=== PATIENT | female | born 1955 | race Caucasian/White ===

== ENCOUNTER → 2020-03-19 13:41 | Outpatient (BNVA) | payer MEDICARE, SELFPAY | PROVIDERS: PCP Family Medicine; Referring Provider Family Medicine; Visit Provider Internal Medicine Endocrinology, Diabetes & Metabolism | DX: E11.65 Type 2 diabetes mellitus with hyperglycemia (principal); E11.40 Type 2 diabetes mellitus with diabetic neuropathy, unspecified; Z79.4 Long term (current) use of insulin; E27.8 Other specified disorders of adrenal gland; I10 Essential (primary) hypertension; E66.9 Obesity, unspecified; Z68.37 Body mass index [BMI] 37.0-37.9, adult; E78.5 Hyperlipidemia, unspecified; Z79.899 Other long term (current) drug therapy | CPT/HCPCS: 82947; 99214 ==

== ENCOUNTER 2020-08-27 09:42 | Outpatient (REF) | payer MEDICARE, SELFPAY ==
[2020-08-27 10:43] LABS: Hematocrit 46.4 % (37-47); Hemoglobin 14.7 g/dl (12.0-16.0); Mean Corpuscular HGB Conc 31.7 g/dl (31.0-35.0); Mean Corpuscular Hemoglobin 28.4 pg (27.0-33.0); Mean Corpuscular Volume 89.6 fL (80-98); Mean Platelet Volume 10.1 fL (9.4-12.3); Platelet Count 256 X10*3/uL (160-400); Red Blood Count 5.18 X10*6/uL (4.20-5.50); White Blood Count 7.5 X10*3/uL (4.8-10.8)
[2020-08-27 11:21] LABS: Alanine Aminotransferase 25 U/L (0-31); Albumin Level 4.1 g/dL (3.5-5.0); Alkaline Phosphatase 108 U/L (39-117); Anion Gap 14 (12-20); Aspartate Amino Transferase 27 U/L (5-31); Bilirubin Total 0.6 mg/dL (0.0-1.0); Blood Urea Nitrogen 20 mg/dL (9-16); Calcium 9.2 mg/dL (8.4-10.2); Carbon Dioxide 24 mmol/L (22-29); Chloride 103 mmol/L (96-108); Cholesterol 271 mg/dL; Estimated Glomerular Filt Rate > 60; Glucose Fasting 222 mg/dL (60-99); HDL Cholesterol 49 mg/dL; LDL Cholesterol Calculated 177 mg/dl; Potassium 4.7 mmol/L (3.3-5.1); Sodium 136 mmol/L (135-145); Total Protein 6.9 g/dL (6.5-8.0); Triglycerides 227 mg/dL
[2020-08-27 11:21] LABS: Creatinine Urine 169.66 mg/dL; Microalbum/Creatinine Ratio Ur 12.3 ug/mg cr
[2020-08-27 11:48] LABS: Vitamin B12 283 pg/mL (200-900)
[2020-08-28 02:46] LABS: LDL Cholesterol Direct 202 mg/dL (<100)
== END 2020-08-27 09:43 | disposition home or self-care (01) ==
LOC: HO.LAB 09:42
PROVIDERS: PCP Family Medicine; Visit Provider Internal Medicine Endocrinology, Diabetes & Metabolism
DX: E11.65 Type 2 diabetes mellitus with hyperglycemia (principal); E11.40 Type 2 diabetes mellitus with diabetic neuropathy, unspecified; I10 Essential (primary) hypertension; E27.8 Other specified disorders of adrenal gland; E78.5 Hyperlipidemia, unspecified; E66.9 Obesity, unspecified; Z79.899 Other long term (current) drug therapy; Z87.891 Personal history of nicotine dependence; Z88.0 Allergy status to penicillin; Z79.82 Long term (current) use of aspirin; Z79.4 Long term (current) use of insulin
CPT/HCPCS: 36415; 80053; 80061; 82043; 82607; 82947; 83721; 85027; 99212

== ENCOUNTER → 2021-03-30 09:56 | Outpatient (BNVA) | payer MEDICARE, SELFPAY | PROVIDERS: PCP Family Medicine; Visit Provider Nurse Practitioner Gerontology | DX: E11.65 Type 2 diabetes mellitus with hyperglycemia (principal); E11.40 Type 2 diabetes mellitus with diabetic neuropathy, unspecified; E78.5 Hyperlipidemia, unspecified; E66.01 Morbid (severe) obesity due to excess calories; I10 Essential (primary) hypertension; Z68.37 Body mass index [BMI] 37.0-37.9, adult | CPT/HCPCS: 82947; 83036; 99212 ==

== ENCOUNTER 2021-09-01 10:53 | Outpatient (REF) | payer MEDICARE, SELFPAY ==
[2021-09-01 12:44] LABS: Creatinine Urine 128.51 mg/dL; Microalbum/Creatinine Ratio Ur 349.3 ug/mg cr
[2021-09-01 12:45] LABS: Alanine Aminotransferase 21 U/L (0-31); Albumin Level 4.2 g/dL (3.5-5.0); Alkaline Phosphatase 97 U/L (39-117); Anion Gap 15 (12-20); Aspartate Amino Transferase 21 U/L (5-31); Bilirubin Total 0.7 mg/dL (0.0-1.0); Blood Urea Nitrogen 15 mg/dL (9-16); Calcium 10.2 mg/dL (8.4-10.2); Carbon Dioxide 21 mmol/L (22-29); Chloride 102 mmol/L (96-108); Cholesterol 156 mg/dL; Estimated Glomerular Filt Rate > 60; Glucose Fasting 260 mg/dL (60-99); HDL Cholesterol 63 mg/dL; LDL Cholesterol Calculated 64 mg/dl; Potassium 4.4 mmol/L (3.3-5.1); Sodium 134 mmol/L (135-145); Total Protein 7.5 g/dL (6.5-8.0); Triglycerides 147 mg/dL
== END 2021-09-01 10:54 | disposition home or self-care (01) ==
LOC: HO.LAB 10:53
PROVIDERS: PCP Family Medicine; Visit Provider Nurse Practitioner Gerontology
DX: E11.65 Type 2 diabetes mellitus with hyperglycemia (principal); E55.9 Vitamin D deficiency, unspecified
CPT/HCPCS: 36415; 80053; 80061; 82043; 82306

== ENCOUNTER → 2021-09-06 09:53 | Outpatient (BNVA) | payer MEDICARE, SELFPAY | PROVIDERS: PCP Family Medicine; Visit Provider Internal Medicine | DX: E27.8 Other specified disorders of adrenal gland (principal) | CPT/HCPCS: 99212 ==

== ENCOUNTER 2021-09-07 07:35 | Outpatient (REF) | payer MEDICARE, SELFPAY ==
[2021-09-07 09:18] LABS: Alanine Aminotransferase 29 U/L (0-31); Albumin Level 4.2 g/dL (3.5-5.0); Alkaline Phosphatase 97 U/L (39-117); Anion Gap 20 (12-20); Aspartate Amino Transferase 27 U/L (5-31); Bilirubin Total 0.7 mg/dL (0.0-1.0); Blood Urea Nitrogen 22 mg/dL (9-16); Calcium 10.2 mg/dL (8.4-10.2); Carbon Dioxide 20 mmol/L (22-29); Chloride 102 mmol/L (96-108); Estimated Glomerular Filt Rate 58; Glucose Random 224 mg/dL (60-115); Potassium 5.1 mmol/L (3.3-5.1); Sodium 137 mmol/L (135-145); Total Protein 7.7 g/dL (6.5-8.0)
[2021-09-07 10:31] LABS: Cortisol Random 6.4 ug/dL
[2021-09-09 02:22] LABS: DHEA Sulfate 7 mcg/dL (9-118)
[2021-09-09 15:22] LABS: Adrenocorticotropic Hormone 16 pg/mL (6-50)
[2021-09-12 12:42] LABS: Metanephrine, Free 48 pg/mL (<=57); Normetanephrines, Free 109 pg/mL (<=148); Total Metanephrine, Free 157 pg/mL (<=205)
[2021-09-16 16:22] LABS: Renin 82.85 ng/mL/h (0.25-5.82)
[2021-09-17 14:16] LABS: Catecholamine Frac, Total 650 pg/mL
== END 2021-09-07 07:36 | disposition home or self-care (01) ==
LOC: HO.LAB 07:35
PROVIDERS: PCP Family Medicine; Visit Provider Internal Medicine
DX: E27.8 Other specified disorders of adrenal gland (principal)
CPT/HCPCS: 36415; 80053; 82024; 82088; 82384; 82533; 82627; 83835; 84244

== ENCOUNTER → 2021-09-08 12:05 | Outpatient (BNVA) | payer MEDICARE, SELFPAY | PROVIDERS: PCP Family Medicine; Visit Provider Internal Medicine | DX: Z13.89 Encounter for screening for other disorder (principal) ==

== ENCOUNTER → 2021-09-10 09:28 | Outpatient (BNVA) | payer MEDICARE, SELFPAY | PROVIDERS: PCP Family Medicine; Visit Provider Nurse Practitioner Gerontology | DX: E11.65 Type 2 diabetes mellitus with hyperglycemia (principal); E11.40 Type 2 diabetes mellitus with diabetic neuropathy, unspecified; E66.01 Morbid (severe) obesity due to excess calories; Z68.37 Body mass index [BMI] 37.0-37.9, adult; E78.5 Hyperlipidemia, unspecified; I10 Essential (primary) hypertension; Z79.4 Long term (current) use of insulin; Z79.84 Long term (current) use of oral hypoglycemic drugs; Z87.891 Personal history of nicotine dependence | CPT/HCPCS: 82947; 83036; 99212 ==

== ENCOUNTER 2021-09-13 09:34 | Outpatient (REF) | payer MEDICARE, SELFPAY ==
[2021-09-13 10:46] LABS: Total Volume 24 Hour Urine 1225 mL
[2021-09-13 11:19] LABS: Creatinine, 24Hr Urine 1.1 G/Day (1.0-2.0); Creatinine, mg/dL 92.82
[2021-09-19 03:22] LABS: Metanephrine, Free 24U 83 mcg/24 h (90-315); Normetanephrine, Free 24U 236 mcg/24 h (122-676); Total Metanephrine, Free 24U 319 mcg/24 h (224-832); Total Volume 24U 1225 mL
[2021-09-20 10:51] LABS: CATF, 24 Ur Volume 1225 mL; CATF-24Ur Creatinine 1.14 g/24 h (0.50-2.15); Catecholamines,Tot. (E+NE) 24U 38 mcg/24 h (26-121); Dopamine, 24 Ur 177 mcg/24 h (52-480); Norepinephrine, 24 Ur 38 mcg/24 h (15-100)
[2021-09-21 12:02] LABS: Cortisol Free, 24 Hr Urine 4.2 mcg/24 h (4.0-50.0); Creatinine, 24 Hr Urine 1.15 g/24 h (0.50-2.15); Total Volume, 24 Hr Urine 1225 mL
[2021-09-26 01:22] LABS: Aldosterone, 24Hr Urine 2.7 mcg/24 h; Creatinine 24Hr Urine 1.13 g/24 h (0.50-2.15); Total Volume 1225 mL
== END 2021-09-13 09:35 | disposition home or self-care (01) ==
LOC: HO.LNP 09:34
PROVIDERS: Visit Provider Internal Medicine
DX: E27.8 Other specified disorders of adrenal gland (principal)
CPT/HCPCS: 82088; 82384; 82530; 82570; 83835

== ENCOUNTER 2021-09-14 08:14 | Outpatient (REF) | payer MEDICARE, SELFPAY ==
[2021-09-15 19:07] LABS: Adrenocorticotropic Hormone 11 pg/mL (6-50)
[2021-09-16 07:21] LABS: Cortisol 30 Minute 25.2 mcg/dL; Cortisol 60 Minute 28.7 mcg/dL; Cortisol 60 Minute Time 3 1006; Cortisol Baseline 9.8 mcg/dL
== END 2021-09-14 08:15 | disposition home or self-care (01) ==
LOC: HO.MDS 08:14
PROVIDERS: Visit Provider Internal Medicine
DX: E27.40 Unspecified adrenocortical insufficiency (principal)
CPT/HCPCS: 36415; 82024; 82533; 96374; J0834

== ENCOUNTER 2021-09-17 07:50 | Outpatient (REF) | payer MEDICARE, SELFPAY ==
[2021-09-17 09:37] LABS: Cortisol Random < 1.0 ug/dL
[2021-09-20 21:47] LABS: Adrenocorticotropic Hormone <5 pg/mL (6-50)
[2021-09-22 16:11] LABS: Dexamethasone 609 ng/dL
== END 2021-09-17 07:51 | disposition home or self-care (01) ==
LOC: HO.LAB 07:50
PROVIDERS: PCP Family Medicine; Visit Provider Internal Medicine
DX: E27.8 Other specified disorders of adrenal gland (principal)
CPT/HCPCS: 36415; 80299; 82024; 82533

== ENCOUNTER 2021-10-20 08:03 | Outpatient (REF) | payer MEDICARE, SELFPAY ==
--- NOTE | ~2021-10-20 | CT_ITS ---
EXAMINATION: CT ABDOMEN WITHOUT CONTRAST CLINICAL INFORMATION: Adrenal gland disorder. COMPARISON: CT abdomen without contrast 01/12/2018. TECHNIQUE: Contiguous axial thin section helical images of the abdomen were performed without contrast. The data set was reformatted in the coronal and sagittal planes and reviewed on an independent workstation. This CT examination was performed using dose optimization techniques as appropriate, variously including the following: *Automated exposure control *Adjustment of mA and/or kV according to patient size (this includes techniques or standardized protocols for targeted exams where dose is matched to indication/reason for exam; i.e. extremities or head) *Use of iterative reconstruction technique DLP: 590 mGy-cm FINDINGS: LUNG BASES: Lung bases are clear. LIVER, GALLBLADDER, BILIARY TREE: The liver is homogeneous in density, normal size and contour. No focal lesion or intrahepatic ductal dilatation seen. There are no radiopaque gallstones or wall thickening. PANCREAS: The pancreas is homogeneous in density and normal size. No focal lesion seen. SPLEEN: The spleen is unremarkable. ADRENAL GLANDS AND KIDNEYS: There is mild fullness of the left adrenal gland. It measures 6 Hounsfield units and approximately 1.6 cm in craniocaudad length. The right adrenal gland is normal. Both kidneys are normal size, shape and position. There are no radiopaque renal calculi or hydronephrosis. BOWEL LOOPS: Scattered stool and gas is seen in the colon without any significant distention. The small bowel loops are normal caliber. LYMPH NODES: Normal. VASCULAR: Unremarkable. BONES: No lytic or sclerotic process seen. CT/CT abdomen wo con IMPRESSION: Stable left adrenal adenoma measuring 7 Hounsfield units and same size as previous study 01/12/2018. Fleischner guidelines were followed.
[2021-10-20 08:32] LABS: Blood Urea Nitrogen 13 mg/dL (9-16); Estimated Glomerular Filt Rate > 60
== END 2021-10-20 08:04 | disposition home or self-care (01) ==
LOC: HO.CT 08:03
PROVIDERS: Absent Provider Internal Medicine Endocrinology, Diabetes & Metabolism; PCP Family Medicine; Visit Provider Internal Medicine
DX: E27.8 Other specified disorders of adrenal gland (principal)
CPT/HCPCS: 36415; 74150; 82565; 84520

== ENCOUNTER → 2021-11-30 09:49 | Outpatient (BNVA) | payer MEDICARE, SELFPAY | PROVIDERS: PCP Family Medicine; Visit Provider Nurse Practitioner Gerontology | DX: E11.65 Type 2 diabetes mellitus with hyperglycemia (principal); E11.40 Type 2 diabetes mellitus with diabetic neuropathy, unspecified; E78.5 Hyperlipidemia, unspecified; I10 Essential (primary) hypertension; E66.01 Morbid (severe) obesity due to excess calories; Z68.37 Body mass index [BMI] 37.0-37.9, adult; Z79.4 Long term (current) use of insulin | CPT/HCPCS: 82947; 99212; Q3014 ==

== ENCOUNTER → 2021-12-30 13:34 | Outpatient (BNVA) | payer MEDICARE, SELFPAY | PROVIDERS: PCP Family Medicine; Visit Provider Internal Medicine | DX: E27.8 Other specified disorders of adrenal gland (principal); E11.69 Type 2 diabetes mellitus with other specified complication; Z79.4 Long term (current) use of insulin | CPT/HCPCS: 99212 ==

== ENCOUNTER 2022-11-25 07:13 | Outpatient (REF) | payer MEDICARE, SELFPAY ==
--- NOTE | ~2022-11-25 | MR_ITS ---
EXAMINATION: MR ABDOMEN WITHOUT CONTRAST CLINICAL INFORMATION: Other specified disorder of adrenal gland COMPARISON: Previous CT scans from 2018 and 2021 of the abdomen. TECHNIQUE: MR abdomen is performed without gadolinium contrast. Patient became claustrophobic and refused to complete the exam. IV contrast was not administered. FINDINGS: LUNG BASES: The visualized lung bases are unremarkable. LIVER, GALLBLADDER, AND BILIARY TREE: The liver is normal in size, smooth in contour, and normal in signal. No focal hepatic lesion or biliary ductal dilatation is present. The gallbladder is unremarkable with no evidence of gallbladder wall thickening, or obvious pericholecystic inflammatory changes. PANCREAS: Unremarkable. SPLEEN: Unremarkable. ADRENAL GLANDS: There is a 1.4 x 1.3 cm left adrenal lesion. This loses signal on out of phase sequences suggestive of a benign lipid rich adenoma. This does not appear appreciably changed in size from previous CT scans. The right adrenal gland is normal. KIDNEYS AND URETERS: The kidneys are normal in size and shape. No hydronephrosis. No perinephric stranding. GASTROINTESTINAL TRACT: No bowel obstruction. No ascites or fluid collection. ABDOMINAL WALL: No significant hernia is appreciated. LYMPH NODES: No lymphadenopathy. VASCULAR: Unremarkable. OSSEOUS STRUCTURES: Marrow signal normal. MR/MR abdomen wo con IMPRESSION: Stable 1.3 x 1.4 cm left adrenal lesion that loses signal on out of phase sequences suggestive of a benign lipid rich adenoma.
== END 2022-11-25 07:14 | disposition home or self-care (01) ==
LOC: HO.MRI 07:13
PROVIDERS: PCP Family Medicine; Visit Provider Internal Medicine
DX: E27.8 Other specified disorders of adrenal gland (principal)
CPT/HCPCS: 74181

== ENCOUNTER 2022-12-29 08:33 | Outpatient (AMB) | payer MEDICARE, SELFPAY ==
--- NOTE | 2022-12-29 08:34 | MHC.OFFVIS ---
Intake Intake Visit Reasons: F/U Adrenal Adenoma Allergies penicillin V Allergy (Unknown, Verified 12/29/22 10:26) Unknown tramadol Allergy (Unknown, Uncoded 12/29/22 10:26) Unknown Medication List - Last Reconciled 12/29/22 by Jeannette Brito, aspirin (Adult Aspirin Regimen) 81 mg PO DAILY blood sugar diagnostic (FreeStyle Lite Strips) As directed three times a day blood-glucose meter (FreeStyle Lite Meter kit) As directed 3x/day cholecalciferol (vitamin D3) 125 mcg PO DAILY esomeprazole magnesium (Nexium) 20 mg PO DAILY ezetimibe 10 mg PO DAILY glipizide ER 5 mg PO DAILY 90 days insulin glargine U-300 conc (Toujeo SoloStar U-300 Insulin) 34 units (0.1133 mL) subcut DAILY 30 days lancets (FreeStyle Lancets) Three times a day lisinopril 20 mg PO DAILY 90 days metformin ER 1,000 mg (2 x 500 mg) PO BID 90 days metoprolol tartrate 25 mg PO BID 90 days pen needle, diabetic Once a day rosuvastatin 40 mg PO DAILY 90 days HPI HPI Comments History of Present Illness Details 66 YO F with PMHx T2DM and a L adrenal nodule who is seen in F/U for her L adrenal nodule. She was previously followed by Dr. Khalil. Her T2DM is managed by her PCP. She had a CT of the chest in 2015 during a hospital admission which noted a L adrenal incidentaloma. She underwent a biochemical evaluation in 2016 which revealed no evidence of hyperaldosteronism, and no evidence of jesus's or pheochromocytoma. She had a repeat CT scan 01/12/2018 with a 2.5 cm L adrenal adenoma, with precontrast HU of 0. No washout chracteristics were given. She then had a repeat CT of the abdomen without contrast due to the shotrage 10/20/2021 with a 1.6 cm L adrenal nodule measurin 6 HU. She underwent a full biochemical evaluation which revealed no evidence of hyperaldosteronism or pheochromocytoma. Her am cortisol was slightly low so she underwent a cosyntropin stim test which was WNL. She also underwent a dexamethasone supression test which was WNL ruling out jesus's disease. She had a repeat MRI of the abdomen 11/25/2022 which revealed a 1.4 cm left adrenal nodule, consistent with a lipid rich adenoma. Denies history of spells with headache, flushing, diaphoresis, abdominal pain or diarrhea. Does report weight gain. Denies violaceous striae. History of HTN, controlled on 2 agents (Lisinopril 20 mg PO daily and Metoprolol 25 mg PO BID). No history of anticoagulant use. Denies any weight loss or orthostatic symptoms. No history of malignancy or TB. Imagin08/27/2020 FINDINGS: LUNG BASES: Mild dependent atelectasis. LIVER, GALLBLADDER, AND BILIARY TREE: There is mild diffuse fatty infiltration of the liver but no focal hepatic lesion nor biliary ductal dilatation. The gallbladder is contracted but otherwise unremarkable. PANCREAS: Unremarkable SPLEEN: Unremarkable ADRENAL GLANDS AND KIDNEYS: There is stable low-attenuation fullness to the left adrenal gland with a left ovarian nodule that measures 2.5 x 1.7 cm in size. On the noncontrast images this measures 0 Hounsfield units consistent with an adrenal adenoma. There is minimal postcontrast enhancement measuring 11 Hounsfield units on the initial postcontrast examination and also 11 Hounsfield units on the 15 minute delayed image. Contralateral right adrenal gland is unremarkable. No focal abnormalities seen within the kidneys. BOWEL LOOPS: Visualized small and large bowel are unremarkable. LYMPH NODES: Normal. VASCULAR: Vascular calcification within the visualized aorta BONES: Unremarkable IMPRESSION: 2.5 cm left adrenal adenoma measures 0 Hounsfield units on the noncontrast study consistent with a lipid rich adrenal adenoma. When measured in similar orientation on the prior 07/08/2015 study this remains stable in size. No new or suspicious features seen. Labs: Laboratory Tests 09/01/21 09/07/21 09/07/21 11:11 08:30 08:30 Sodium 137 Potassium 5.1 Creatinine Estimated GFR Renin 25-OH Vitamin D To lorie 44.0 DHEA Sulfate 7 L Random Cortisol ACTH Plas Tot Catechola mine Dopamine Epinephrine Norepinephrine Plasma Free Metane ph Plasma Free Normet a Plas Total Metanep h Urine Total Volume Ur Creatinine 24 H our Ur Free Cortisol 2 4 Hr Ur Epinephrine 24 Hr U Norepinephrine 2 4 Hr U Free Metanephrin e U Normetanephrine 24h U Tot Metanephrine 24h Ur Dopamine 24 Hr U Tot Catecholamin e 24h Ur Aldosterone 24 Hr Dexamethasone 09/07/21 09/07/21 09/07/21 08:30 08:30 08:30 Sodium Potassium Creatinine Estimated GFR Renin 82.85 H 25-OH Vitamin D To lorie DHEA Sulfate Random Cortisol ACTH Plas Tot Cate[place]ola mine 650 Dopamine <20 Epinephrine 47 Norepinephrine 603 Plasma Free Metane ph 48 Plasma Free Normet a 109 Plas Total Metanep h 157 Urine Total Volume Ur Creatinine 24 H our Ur Free Cortisol 2 4 Hr Ur Epinephrine 24 Hr U Norepinephrine 2 4 Hr U Free Metanephrin e U Normetanephrine 24h U Tot Metanephrine 24h Ur Dopamine 24 Hr U Tot Catecholamin e 24h Ur Aldosterone 24 Hr Dexamethasone 09/13/21 09/13/21 09/13/21 06:55 06:55 06:55 Sodium Potassium Creatinine Estimated GFR Renin 25-OH Vitamin D To lorie DHEA Sulfate Random Cortisol ACTH Plas Tot [place] mine Dopamine Epinephrine Norepinephrine Plasma Free Metane ph Plasma Free Normet a Plas Total Metanep h Urine Total Volume 1225 Ur Creatinine 24 H our 1.1 Ur Free Cortisol 2 4 Hr 4.2 Ur Epinephrine 24 Hr see note U Norepinephrine 2 4 Hr 38 U Free Metanephrin e 83 L U Normetanephrine 24h 236 U Tot Metanephrine 24h 319 Ur Dopamine 24 Hr 177 U Tot Catecholamin e 24h 38 Ur Aldosterone 24 Hr 2.7 Dexamethasone 09/17/21 09/17/21 09/17/21 08:08 08:08 08:08 Sodium Potassium Creatinine Estimated GFR Renin 25-OH Vitamin D To lorie DHEA Sulfate Random Cortisol < 1.0 ACTH <5 L Plas Tot [place]ola mine Dopamine Epinephrine Norepinephrine Plasma Free Metane ph Plasma Free Normet a Plas Total Metanep h Urine Total Volume Ur Creatinine 24 H our Ur Free Cortisol 2 4 Hr Ur Epinephrine 24 Hr U Norepinephrine 2 4 Hr U Free Metanephrin e U Normetanephrine 24h U Tot Metanephrine 24h Ur Dopamine 24 Hr U Tot Catecholamin e 24h Ur Aldosterone 24 Hr Dexamethasone 609 10/20/21 08:10 Sodium Potassium Creatinine 0.76 Estimated GFR > 60 Renin 25-OH Vitamin D To lorie DHEA Sulfate Random Cortisol ACTH Plas Tot [place] mine Dopamine Epinephrine Norepinephrine Plasma Free Metane ph Plasma Free Normet a Plas Total Metanep h Urine Total Volume Ur Creatinine 24 H our Ur Free Cortisol 2 4 Hr Ur Epinephrine 24 Hr U Norepinephrine 2 4 Hr U Free Metanephrin e U Normetanephrine 24h U Tot Metanephrine 24h Ur Dopamine 24 Hr U Tot Catecholamin e 24h Ur Aldosterone 24 Hr Dexamethasone PFSH Medical History Adrenal nodule Coronary artery disease Diabetes type 2, uncontrolled Diabetic neuropathy associated with type 2 diabetes mellitus Dyslipidemia Hypertension [facility] (current) use of insulin Obesity (BMI 30-39.9) Obesity due to excess calories T2DM (type 2 diabetes mellitus) Surgical History H/O bilateral hip replacements History of heart surgery Hx of abdominal hysterectomy Family History Father Hypertension Alcoholism Obesity Mother Hypertension Obesity Diabetes CVD (cardiovascular disease) Social History Household Members: Spouse and Other Household Members Other:: son, Alcohol intake: current Patient Tobacco Use Status: Former Tobacco user Years Smoked: 40 Assessment & Plan Assessment & Plan (1) Adrenal nodule: Code(s): E27.8 - Other specified disorders of adrenal gland Plan: Patient with a 1.4 cm L adrenal nodule. She will complete her biochemical evaluation now and her 24 hour urine collection. She will F/U in 2 months time to review the results, and will be ordered for a dexamethasone suppression test at that time. She will continue with yearly biochemical evaluation. All of her questions were answered. She is in agreement with this plan of care. I spent 20 minutes in reviewing the record, seeing the patient and documenting in the medical record, including 5 minutes on the phone with the Patient. Orders: Orders Adrenocorticotropic Hormone Today E27.8 - Other specified disorders of adrenal gland Aldosterone Today E27.8 - Other specified disorders of adrenal gland Basic Metabolic Panel Today E27.8 - Other specified disorders of adrenal gland Catecholamines, Frac., 24Ur Today E27.8 - Other specified disorders of adrenal gland Catecholamines, Frac., Plasma Today E27.8 - Other specified disorders of adrenal gland Cortisol Random Today E27.8 - Other specified disorders of adrenal gland DHEA Sulfate Today E27.8 - Other specified disorders of adrenal gland Metanephrines, Plasma Today E27.8 - Other specified disorders of adrenal gland Renin Today E27.8 - Other specified disorders of adrenal gland Metanephrines, 24hr Urine Today E27.8 - Other specified disorders of adrenal gland Creatinine, 24 Hr Group Today E27.8 - Other specified disorders of adrenal gland Telehealth Telehealth Location of provider rendering services: practice address Location of patient: address on file Patient Identification confirmed using: Name, : Yes Telehealth method: voice only Patient verbally consented to treatment: Yes Patient verbally consented to billing insurance company: Yes Patient informed of any privacy concerns related to visit: Yes Coding Level of Care Code Tele Est Pt Level 3 (75043) Diagnoses Adrenal nodule E27.8
== END 2022-12-29 13:57 | disposition home or self-care (01) ==
LOC: HO.ENCR 08:33
PROVIDERS: PCP Family Medicine; Visit Provider Internal Medicine
DX: E27.8 Other specified disorders of adrenal gland (principal)
CPT/HCPCS: 99443

== ENCOUNTER → 2022-12-29 08:33 | Outpatient (BNVA) | payer MEDICARE, SELFPAY | PROVIDERS: PCP Family Medicine; Visit Provider Internal Medicine ==

== ENCOUNTER 2023-03-01 13:43 | Outpatient (REF) | payer MEDICARE, SELFPAY | END 2023-03-01 13:44 | disposition home or self-care (01) | LOC: HO.LAB 13:43 | PROVIDERS: Visit Provider Internal Medicine | DX: Z13.89 Encounter for screening for other disorder (principal) ==

== ENCOUNTER 2023-03-03 08:24 | Outpatient (REF) | payer MEDICARE, SELFPAY ==
[2023-03-03 09:27] LABS: Anion Gap 16 (12-20); Blood Urea Nitrogen 16 mg/dL (9-16); Calcium 9.4 mg/dL (8.4-10.2); Carbon Dioxide 20 mmol/L (22-29); Chloride 108 mmol/L (96-108); Estimated Glomerular Filt Rate > 60; Glucose Random 186 mg/dL (60-115); Potassium 4.8 mmol/L (3.3-5.1); Sodium 139 mmol/L (135-145)
[2023-03-03 09:59] LABS: Cortisol Random 12.6 ug/dL
[2023-03-03 12:05] LABS: Creatinine, mg/dL 48.03
[2023-03-03 12:15] LABS: Creatinine, 24Hr Urine 1.3 G/Day (1.0-2.0); Total Volume 24 Hour Urine 2625 mL
[2023-03-04 20:22] LABS: DHEA Sulfate 13 mcg/dL (9-118)
[2023-03-08 05:39] LABS: Adrenocorticotropic Hormone 22 pg/mL (6-50)
[2023-03-10 06:29] LABS: Metanephrine, Free 53 pg/mL (<=57); Normetanephrines, Free 66 pg/mL (<=148); Total Metanephrine, Free 119 pg/mL (<=205)
[2023-03-10 08:43] LABS: CATF, 24 Ur Volume 2625 mL; CATF-24Ur Creatinine 1.23 g/24 h (0.50-2.15); Catecholamines,Tot. (E+NE) 24U 57 mcg/24 h (26-121); Dopamine, 24 Ur 404 mcg/24 h (52-480); Norepinephrine, 24 Ur 57 mcg/24 h (15-100)
[2023-03-11 02:10] LABS: Metanephrine, Free 24U 118 mcg/24 h (90-315); Normetanephrine, Free 24U 423 mcg/24 h (122-676); Total Metanephrine, Free 24U 541 mcg/24 h (224-832); Total Volume 24U 2625 mL
[2023-03-15 16:03] LABS: Renin 1.07 ng/mL/h (0.25-5.82)
[2023-03-24 19:48] LABS: Catecholamine Frac, Total 395 pg/mL
== END 2023-03-03 08:25 | disposition home or self-care (01) ==
LOC: HO.LAB 08:24
PROVIDERS: Visit Provider Internal Medicine
DX: E27.8 Other specified disorders of adrenal gland (principal)
CPT/HCPCS: 36415; 80048; 82024; 82088; 82384; 82533; 82570; 82627; 83835; 84244

== ENCOUNTER 2023-03-08 15:33 | Outpatient (AMB) | payer MEDICARE, SELFPAY ==
--- NOTE | 2023-03-08 15:36 | MHC.OFFVIS ---
Intake Vital Signs 03/08/23 15:37 Height 5 ft 6 in Weight 222 lb 3.615 oz BMI 35.9 BP 150/70 H Blood Pressure Location Lt brachial Position Sitting Pulse 92 Pulse Source Pulse Oximeter Intake Visit Reasons: F/U Adrenal Adenoma/Confirmed Intake Note: Patient present today for Adrenal adenoma follow up visit. 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 Accompanied by: Self / Same As Patient Allergies penicillin V Allergy (Unknown, Verified 03/08/23 15:41) Unknown tramadol Allergy (Unknown, Uncoded 12/29/22 10:26) Unknown Medication List - Last Reconciled 03/08/23 by Erik Parra MD aspirin (Adult Aspirin Regimen) 81 mg PO DAILY blood sugar diagnostic (FreeStyle Lite Strips) As directed three times a day blood-glucose meter (FreeStyle Lite Meter kit) As directed 3x/day cholecalciferol (vitamin D3) 125 mcg PO DAILY esomeprazole magnesium (Nexium) 20 mg PO DAILY ezetimibe 10 mg PO DAILY glipizide ER 5 mg PO DAILY 90 days insulin glargine U-300 conc (Toujeo SoloStar U-300 Insulin) 34 units (0.1133 mL) subcut DAILY 30 days lancets (FreeStyle Lancets) Three times a day lisinopril 20 mg PO DAILY 90 days metformin ER 1,000 mg (2 x 500 mg) PO BID 90 days metoprolol tartrate 25 mg PO BID 90 days pen needle, diabetic Once a day rosuvastatin 40 mg PO DAILY 90 days HPI HPI Comments History of Present Illness Details 67 YO F with PMHx T2DM and a L adrenal nodule who is seen in F/U for her L adrenal nodule. She was previously followed by Dr. Scales. H last seen on 12/29/2022. Her T2DM is managed by her PCP. She had a CT of the chest in 2015 during a hospital admission which noted a L adrenal incidentaloma. She underwent a biochemical evaluation in 2016 which revealed no evidence of hyperaldosteronism, and no evidence of jesus's or pheochromocytoma. She had a repeat CT scan 01/12/2018 with a 2.5 cm L adrenal adenoma, with precontrast HU of 0. No washout chracteristics were given. She then had a repeat CT of the abdomen without contrast due to the shotrage 10/20/2021 with a 1.6 cm L adrenal nodule measurin 6 HU. She underwent a full biochemical evaluation which revealed no evidence of hyperaldosteronism or pheochromocytoma. Her am cortisol was slightly low so she underwent a cosyntropin stim test which was WNL. She also underwent a dexamethasone supression test which was WNL ruling out jesus's disease. She had a repeat MRI of the abdomen 11/25/2022 which revealed a 1.4 cm left adrenal nodule, consistent with a lipid rich adenoma. Denies history of spells with headache, flushing, diaphoresis, abdominal pain or diarrhea. Does report weight gain. Denies violaceous striae. History of HTN, controlled on 2 agents (Lisinopril 20 mg PO daily and Metoprolol 25 mg PO BID). No history of anticoagulant use. Denies any weight loss or orthostatic symptoms. No history of malignancy or TB. Imagin08/27/2020 FINDINGS: LUNG BASES: Mild dependent atelectasis. LIVER, GALLBLADDER, AND BILIARY TREE: There is mild diffuse fatty infiltration of the liver but no focal hepatic lesion nor biliary ductal dilatation. The gallbladder is contracted but otherwise unremarkable. PANCREAS: Unremarkable SPLEEN: Unremarkable ADRENAL GLANDS AND KIDNEYS: There is stable low-attenuation fullness to the left adrenal gland with a left ovarian nodule that measures 2.5 x 1.7 cm in size. On the noncontrast images this measures 0 Hounsfield units consistent with an adrenal adenoma. There is minimal postcontrast enhancement measuring 11 Hounsfield units on the initial postcontrast examination and also 11 Hounsfield units on the 15 minute delayed image. Contralateral right adrenal gland is unremarkable. No focal abnormalities seen within the kidneys. BOWEL LOOPS: Visualized small and large bowel are unremarkable. LYMPH NODES: Normal. VASCULAR: Vascular calcification within the visualized aorta BONES: Unremarkable IMPRESSION: 2.5 cm left adrenal adenoma measures 0 Hounsfield units on the noncontrast study consistent with a lipid rich adrenal adenoma. When measured in similar orientation on the prior 07/08/2015 study this remains stable in size. No new or suspicious features seen. Labs: Laboratory Tests 09/01/21 09/07/21 09/07/21 11:11 08:30 08:30 Sodium 137 Potassium 5.1 Creatinine Estimated GFR Renin 25-OH Vitamin D To lorie 44.0 DHEA Sulfate 7 L Random Cortisol ACTH Plas Tot Catechola mine Dopamine Epinephrine Norepinephrine Plasma Free Metane ph Plasma Free Normet a Plas Total Metanep h Urine Total Volume Ur Creatinine 24 H our Ur Free Cortisol 2 4 Hr Ur Epinephrine 24 Hr U Norepinephrine 2 4 Hr U Free Metanephrin e U Normetanephrine 24h U Tot Metanephrine 24h Ur Dopamine 24 Hr U Tot Catecholamin e 24h Ur Aldosterone 24 Hr Dexamethasone 09/07/21 09/07/21 09/07/21 08:30 08:30 08:30 Sodium Potassium Creatinine Estimated GFR Renin 82.85 H 25-OH Vitamin D To lorie DHEA Sulfate Random Cortisol ACTH Plas Tot Cate[place]ola mine 650 Dopamine <20 Epinephrine 47 Norepinephrine 603 Plasma Free Metane ph 48 Plasma Free Normet a 109 Plas Total Metanep h 157 Urine Total Volume Ur Creatinine 24 H our Ur Free Cortisol 2 4 Hr Ur Epinephrine 24 Hr U Norepinephrine 2 4 Hr U Free Metanephrin e U Normetanephrine 24h U Tot Metanephrine 24h Ur Dopamine 24 Hr U Tot Catecholamin e 24h Ur Aldosterone 24 Hr Dexamethasone 09/13/21 09/13/21 09/13/21 06:55 06:55 06:55 Sodium Potassium Creatinine Estimated GFR Renin 25-OH Vitamin D To lorie DHEA Sulfate Random Cortisol ACTH Plas Tot [place]ola mine Dopamine Epinephrine Norepinephrine Plasma Free Metane ph Plasma Free Normet a Plas Total Metanep h Urine Total Volume 1225 Ur Creatinine 24 H our 1.1 Ur Free Cortisol 2 4 Hr 4.2 Ur Epinephrine 24 Hr see note U Norepinephrine 2 4 Hr 38 U Free Metanephrin e 83 L U Normetanephrine 24h 236 U Tot Metanephrine 24h 319 Ur Dopamine 24 Hr 177 U Tot Catecholamin e 24h 38 Ur Aldosterone 24 Hr 2.7 Dexamethasone 09/17/21 09/17/21 09/17/21 08:08 08:08 08:08 Sodium Potassium Creatinine Estimated GFR Renin 25-OH Vitamin D To lorie DHEA Sulfate Random Cortisol < 1.0 ACTH <5 L Plas Tot Cate[place]ola mine Dopamine Epinephrine Norepinephrine Plasma Free Metane ph Plasma Free Normet a Plas Total Metanep h Urine Total Volume Ur Creatinine 24 H our Ur Free Cortisol 2 4 Hr Ur Epinephrine 24 Hr U Norepinephrine 2 4 Hr U Free Metanephrin e U Normetanephrine 24h U Tot Metanephrine 24h Ur Dopamine 24 Hr U Tot Catecholamin e 24h Ur Aldosterone 24 Hr Dexamethasone 609 10/20/21 08:10 Sodium Potassium Creatinine 0.76 Estimated GFR > 60 Renin 25-OH Vitamin D To lorie DHEA Sulfate Random Cortisol ACTH Plas Tot [place] mine Dopamine Epinephrine Norepinephrine Plasma Free Metane ph Plasma Free Normet a Plas Total Metanep h Urine Total Volume Ur Creatinine 24 H our Ur Free Cortisol 2 4 Hr Ur Epinephrine 24 Hr U Norepinephrine 2 4 Hr U Free Metanephrin e U Normetanephrine 24h U Tot Metanephrine 24h Ur Dopamine 24 Hr U Tot Catecholamin e 24h Ur Aldosterone 24 Hr Dexamethasone Has episodes of sweating but no palpitations or headachws . 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 Obesity (BMI 30-39.9) Obesity due to excess calories T2DM (type 2 diabetes mellitus) Surgical History H/O bilateral hip replacements History of heart surgery Hx of abdominal hysterectomy Family History Father Hypertension Alcoholism Obesity Mother Hypertension Obesity Diabetes CVD (cardiovascular disease) Social History Household Members: Spouse and Other Household Members Other:: son, Alcohol intake: current Patient Tobacco Use Status: Former Tobacco user Years Smoked: 40 Physical Exam Vital Signs: Last Vital Signs Pulse 92 03/08/23 15:37 BP 150/70 H 03/08/23 15:37 BMI result Body Mass Index 35.9 Const Other: There are no cushingoid features Assessment & Plan Assessment & Plan (1) Adrenal nodule: Code(s): E27.8 - Other specified disorders of adrenal gland Plan: This 67-year-old white female with a history of left adrenal adenoma with benign characteristics on CT scan. Previous workup did not show hypersecretion. More recent blood work ordered by Dr. Scales is still pending. Plan is to perform 1 mg dexamethasone suppression test with cortisol and dexamethasone level not recently performed. Orders: Orders Cortisol Random 3 Weeks E27.8 - Other specified disorders of adrenal gland Dexamethasone 3 Weeks E27.8 - Other specified disorders of adrenal gland Medications: New dexamethasone 1 mg PO ONCE 1 tab 0RF Coding Level of Care Code Est Pt Level 3 (48294) Diagnoses Adrenal nodule E27.8
[2023-03-08 15:37] VITALS: BP 150/70; PULSE 92; BMI 35.9
== END 2023-03-08 16:15 | disposition home or self-care (01) ==
PROVIDERS: PCP Family Medicine; Visit Provider Internal Medicine Endocrinology, Diabetes & Metabolism
DX: E27.8 Other specified disorders of adrenal gland (principal)
CPT/HCPCS: 99213

== ENCOUNTER → 2023-03-08 15:33 | Outpatient (BNVA) | payer MEDICARE, SELFPAY | PROVIDERS: PCP Family Medicine; Visit Provider Internal Medicine Endocrinology, Diabetes & Metabolism | DX: E27.8 Other specified disorders of adrenal gland (principal) | CPT/HCPCS: 99212 ==